=== PATIENT | female | born 1940 | race Caucasian/White ===

== ENCOUNTER → 2017-03-06 | Outpatient (CLI) | payer MEDICARE ==
[~2017-03-06] MED LIST: ALBU8.5H8 INH; CHOL100011 PO; COLE1TAB2 PO; FLUT1DIS3 INH; LEVO137T3 PO; LEVO150T5 PO; LOPE2CAP PO; LOPE2TAB12 PO; MYBETRIQ PO; OMNIPAQUE 350 MG/ML, 100ML BOTTLE ONE; PANT40TA5 PO; PYRI60TA PO; TIOT18CA INH; VIT1TABL32 PO
== END | disposition home or self-care (01) ==
LOC: RAD 08:29
PROVIDERS: ATTEND Physician Assistant
DX: K86.89 Other specified diseases of pancreas (principal); N20.0 Calculus of kidney; N28.1 Cyst of kidney, acquired; I70.0 Atherosclerosis of aorta; Z98.84 Bariatric surgery status
CPT/HCPCS: 36415; 74170; 82565; Q9967

== ENCOUNTER → 2017-04-10 | Outpatient (CLI) | payer MEDICARE ==
[~2017-04-10] MED LIST changes: -OMNIPAQUE 350 MG/ML, 100ML BOTTLE ONE
== END | disposition home or self-care (01) ==
LOC: CFH 09:36
PROVIDERS: ATTEND Genetic Counselor, MS
DX: I82.412 Acute embolism and thrombosis of left femoral vein (principal); I82.432 Acute embolism and thrombosis of left popliteal vein

== ENCOUNTER → 2017-08-08 | Outpatient (CLI) | payer MEDICARE ==
[~2017-08-08] MED LIST changes: +ACID1TAB7 PO; +ASCO500C2 PO; +CEFD300C37 PO; +DOXY100T PO; +FURO20TA3 PO; +GUAI200T3 PO; +MONT10TA9 PO; +OMEP-110 PO; +POTA10TA31 PO; +RIVA20TA PO; +VITA100020 PO; +[UNRECOGNIZED DRUG - OTHER]
== END | disposition home or self-care (01) ==
LOC: CFH 12:57
PROVIDERS: ATTEND Internal Medicine Cardiovascular Disease
DX: R06.02 Shortness of breath (principal)
CPT/HCPCS: 93306

== ENCOUNTER → 2017-08-19 | Outpatient (CLI) | payer MEDICARE | END | disposition home or self-care (01) | LOC: CFH 09:34 | PROVIDERS: ATTEND Nurse Practitioner Family | DX: Z13.820 Encounter for screening for osteoporosis (principal); M81.0 Age-related osteoporosis without current pathological fracture | CPT/HCPCS: 77080 ==

== ENCOUNTER → 2017-10-07 | Outpatient (CLI) | payer MEDICARE | END | disposition home or self-care (01) | LOC: CFH 09:38 | PROVIDERS: ATTEND Nurse Practitioner Family | DX: J43.9 Emphysema, unspecified (principal); I70.0 Atherosclerosis of aorta; M19.011 Primary osteoarthritis, right shoulder; S42.302D Unspecified fracture of shaft of humerus, left arm, subsequent encounter for fracture with routine healing; X58.XXXD Exposure to other specified factors, subsequent encounter | CPT/HCPCS: 71250 ==

== ENCOUNTER → 2018-01-22 | Outpatient (CLI) | payer MEDICARE | END | disposition home or self-care (01) | LOC: CFH 10:08 | PROVIDERS: ATTEND Genetic Counselor, MS | DX: I82.592 Chronic embolism and thrombosis of other specified deep vein of left lower extremity (principal); M79.89 Other specified soft tissue disorders; E03.9 Hypothyroidism, unspecified; J44.9 Chronic obstructive pulmonary disease, unspecified ==

== ENCOUNTER 2019-01-29 08:37 | Outpatient (CLI) | payer MEDICARE ==
[~2019-01-29 08:37] MED LIST changes: -GUAI200T3 PO; +GUAI200T37 PO
== END 2019-01-29 23:59 | disposition home or self-care (01) ==
LOC: CVU 08:37
PROVIDERS: ATTEND Internal Medicine Cardiovascular Disease
DX: Z01.810 Encounter for preprocedural cardiovascular examination (principal); I08.3 Combined rheumatic disorders of mitral, aortic and tricuspid valves; J44.9 Chronic obstructive pulmonary disease, unspecified; I50.9 Heart failure, unspecified; R06.02 Shortness of breath; Z86.718 Personal history of other venous thrombosis and embolism
CPT/HCPCS: 93306

== ENCOUNTER → 2019-05-25 | Outpatient (CLI) | payer MEDICARE ==
[~2019-05-25] MED LIST changes: +REGADENOSON 0.4 MG/5 ML SYRINGE ONE
== END | disposition home or self-care (01) ==
LOC: CFH 08:09
PROVIDERS: ATTEND Internal Medicine Cardiovascular Disease
DX: Z01.818 Encounter for other preprocedural examination (principal); R07.89 Other chest pain; Z87.891 Personal history of nicotine dependence
CPT/HCPCS: 78452; 93017; A9502; J2785

== ENCOUNTER → 2019-12-09 | Outpatient (CLI) | payer MEDICARE ==
[~2019-12-09] MED LIST changes: +MONT10TA11 PO; -MONT10TA9 PO; -REGADENOSON 0.4 MG/5 ML SYRINGE ONE
== END | disposition home or self-care (01) ==
LOC: CFH 09:46
PROVIDERS: ATTEND Physical Medicine & Rehabilitation
DX: M47.817 Spondylosis without myelopathy or radiculopathy, lumbosacral region (principal); M48.07 Spinal stenosis, lumbosacral region; M16.0 Bilateral primary osteoarthritis of hip; M85.88 Other specified disorders of bone density and structure, other site; M25.78 Osteophyte, vertebrae; I70.0 Atherosclerosis of aorta
CPT/HCPCS: 72131

== ENCOUNTER → 2020-01-20 | Outpatient (CLI) | payer MEDICARE | END | disposition home or self-care (01) | LOC: RAD 14:24 | PROVIDERS: ATTEND Orthopaedic Surgery | DX: M51.37 Other intervertebral disc degeneration, lumbosacral region (principal) | CPT/HCPCS: 72110 ==

== ENCOUNTER 2020-02-28 10:23 | Outpatient (CLI) | payer MEDICARE ==
[~2020-02-28 10:23] MED LIST changes: -PANT40TA5 PO; +PANT40TA6 PO
== END 2020-02-28 23:59 | disposition home or self-care (01) ==
LOC: RAD 10:23
PROVIDERS: ATTEND Orthopaedic Surgery
DX: M16.11 Unilateral primary osteoarthritis, right hip (principal); R10.2 Pelvic and perineal pain; Z96.641 Presence of right artificial hip joint
CPT/HCPCS: 78315; A9503